=== PATIENT | female | born 1985 | race Two or more races ===

== ENCOUNTER 2018-05-30 08:20 | Emergency (ER) | payer SELFPAY ==
[~2018-05-30] VITALS: Ht 170.2 cm; Wt 99.8 kg
--- NOTE | 2018-05-30 08:20 | NUR ---
[id number], came to er c/o left sided chest pain radiates to left arm x 2 days. rr is even and unlabored with nad noted. placed on a monitor and hospital gown. Awaiting md for eval.
[2018-05-30 09:40] LABS: BASOPHILS % (AUTO) 0.5 % (0.0-2.0); EOSINOPHILS % (AUTO) 1.9 % (0.0-6.0); HEMATOCRIT 29 % (33-45); LYMPHOCYTES # (AUTO) 1.2 /CMM (0.8-4.8); LYMPHOCYTES % (AUTO) 24.8 % (20.0-44.0); MEAN CORPUSCULAR HGB CONC 31 g/dl (31.0-36.0); MEAN CORPUSCULAR VOLUME 70 fL (82-100); MONOCYTES # (AUTO) 0.4 /CMM (0.1-1.30); MONOCYTES % (AUTO) 8.3 % (2.0-12.0); NEUTROPHILS # (AUTO) 3.1 /CMM (1.8-8.9); NEUTROPHILS % (AUTO) 64.5 % (43.0-81.0); PLATELET COUNT (AUTO) 455 /CMM (150-450); RDW COEFFICIENT OF VARIATION 18.8 (11.5-15.0); RED BLOOD CELL COUNT(AUTO) 4.13 MIL/uL (4.0-5.2); WHITE BLOOD COUNT (AUTO) 4.9 K/uL (4.3-11.0)
[2018-05-30 09:46] LABS: CALCIUM, SERUM 9.2 mg/dL (8.5-10.1); CARBON DIOXIDE 27 mmol/L (21-32); CHLORIDE 106 mmol/L (98-107); CREATININE 0.7 mg/dL (0.6-1.3); GLUCOSE 107 mg/dL (74-106); POTASSIUM 4.1 mmol/L (3.5-5.1); SODIUM SERUM 143 mmol/L (136-145); UREA NITROGEN, BLOOD 16 mg/dL (7-18)
--- NOTE | 2018-05-30 09:48 | NUR ---
appears comfortable-reclining in bed NAD updated with plan of care
[2018-05-30 09:55] LABS: TROPONIN I < 0.017 ng/mL (0.00-0.056)
[2018-05-30 10:00] VITALS: BP 130/75
--- NOTE | 2018-05-30 10:23 | NUR ---
IV removed. Catheter intact and site benign. Pressure and 4x4 applied to site. No bleeding noted.Patient discharged to home in stable condition. Written and verbal after care instructions given. Patient verbalizes understanding of instruction.
== END 2018-05-30 10:28 | disposition home or self-care (01) ==
LOC: ER 08:20
DX: R07.89 Other chest pain (principal); D64.9 Anemia, unspecified; F41.9 Anxiety disorder, unspecified; R06.02 Shortness of breath; R51 Headache; F17.200 Nicotine dependence, unspecified, uncomplicated
CPT/HCPCS: 36415; 71045; 80048; 84484; 85025; 93005; 99285; 99406; A4606; Z7610

== ENCOUNTER 2019-04-21 16:56 | Emergency (ER) | payer OTHER ==
[~2019-04-21] VITALS: Ht 170.2 cm; Wt 99.8 kg
[2019-04-21 17:11] VITALS: BP 135/85
== END 2019-04-21 17:27 | disposition home or self-care (01) ==
LOC: ER 17:02
DX: L02.01 Cutaneous abscess of face (principal); L70.9 Acne, unspecified

== ENCOUNTER 2021-02-03 11:48 | Emergency (ER) | payer OTHER ==
[~2021-02-03] VITALS: Ht 170.2 cm; Wt 113.4 kg
[2021-02-03 11:59] VITALS: BP 151/94
[2021-02-03 13:43] LABS: BILIRUBIN,URINE SMALL (NEGATIVE); COLOR,URINE YELLOW (YELLOW); LEUKOCYTE ESTERASE ,URINE Negative (NEGATIVE); NITRITE, URINE Negative (NEGATIVE); PROTEIN,URINE Trace mg/dl (NEGATIVE); UGLUCOSE Negative (NEGATIVE); UROBILINOGEN,URINE 0.2 EU/dL (0.2)
[2021-02-03 14:12] LABS: RBC,URINE 0-2 /HPF (0-2)
[2021-02-03 14:13] LABS: BACTERIA,URINE Few /HPF (None Seen); SQUAMOUS EPITHELIAL CELL,UR Moderate /HPF (None Seen); WBC,URINE 0-2 /HPF (0-3)
[2021-02-03] MEDS ORDERED: HYDROCODONE/APAP 5/325MG TABLET ONE (14:51)
[2021-02-03] MEDS ORDERED: HYDROCODONE/APAP 5/325MG TABLET PO ONE (15:00)
[2021-02-03] MEDS ORDERED: HYDR-3980 PO (15:04)
[2021-02-03] MEDS ORDERED: CARI350T PO (15:04)
--- NOTE | 2021-02-03 15:17 | NUR ---
PATIENT A/OX4, BREATHING EVEN AND UNLABORED, NO SOB NOTED, NEEDS ATTENDED, AMBULATORY WITH STEADY GAIT. INSTRUCTED NOT TO DRIVE. Patient discharged to home in stable condition. Written and verbal after care instructions given. Patient verbalizes understanding of instruction.
== END 2021-02-03 15:18 | disposition home or self-care (01) ==
LOC: ER 11:48
DX: M54.42 Lumbago with sciatica, left side (principal); Z79.899 Other long term (current) drug therapy
CPT/HCPCS: 72131-TC; 81001; 84703-TC